=== PATIENT | female | born 1990 | race Caucasian/White ===

== ENCOUNTER 2017-12-30 21:09 | Emergency (ER) | payer OTHER ==
[2017-12-30 21:29] VITALS: RESP 18; TEMP 98.5
--- NOTE | 2017-12-30 22:06 | XR ---
EXAMINATION TYPE: XR Hip LT and AP Pelvis DATE OF EXAM: 12/30/2017 COMPARISON: NONE HISTORY: Left hip pain TECHNIQUE: A single AP view of the pelvis is obtained. Two views of the left hip are obtained. FINDINGS: Pelvic ring is intact. Proximal left femur and hip joint appear intact. Hip joint spaces we ll-maintained. There is no sign of hip dysplasia. Sacroiliac joints appear normal. IMPRESSION: Negative pelvis and left hip exam.
--- NOTE | 2017-12-30 22:13 | ED ---
Lower Extremity Injury HPI - General Chief Complaint: Extremity Injury, Lower Stated Complaint: fall/hip pain Time Seen by Provider: 12/30/17 21:32 Source: patient, RN notes reviewed Mode of arrival: ambulatory Limitations: no limitations - History of Present Illness Initial Comments: This is a 27-year-old female who presents to the emergency department with chief complaint of left hip pain. Patient states her left hip has been hurting for the past 2 weeks. She states that yesterday she sustained a fall and landed directly on her left hip. She states the pain is now worse. She states she has been walking on it normally. She states she has been applying ice. Denies any other injuries or trauma. Denies head, neck or back pain. Denies recent fevers or chills, chest pain or shortness of breath, abdominal pain, nausea or vomiting. - Related Data Home Medications Medication Instructions Recorded Confirmed Albuterol Inhaler [Ventolin Hfa 1 - 2 puff INHALATION RT-Q6H PRN 12/30/17 Inhaler] Allergies Allergy/AdvReac Type Severity Reaction Status Date / Time No Known Allergies Allergy Verified 12/30/17 21:29 Review of Systems ROS Statement: Those systems with pertinent positive or pertinent negative responses have been documented in the HPI. ROS Other: All systems not noted in ROS Statement are negative. Past Medical History Past Medical History: Asthma History of Any Multi-Drug Resistant Organisms: None Reported Past Surgical History: No Surgical Hx Reported Past Psychological History: No Psychological Hx Reported Smoking Status: Current every day smoker Past Alcohol Use History: Occasional Past Drug Use History: Marijuana General Exam - General Exam Comments Initial Comments: General: Awake and alert, well-developed; in no apparent distress. HEENT: Head atraumatic, normocephalic. Pupils are equal, round and reactive to light. Extraocular movements intact. Oropharynx moist without erythema or exudate. Neck: Supple. Normal ROM. Cardiovascular: Regular rate and rhythm. No murmurs, rubs or gallops. Chest symmetrical. Respiratory: Lungs clear to auscultation bilaterally. No wheezes, rales or rhonchi. Normal respiratory effort with no use of accessory muscles. Musculoskeletal: Normal ROM left hip. There is tenderness over the left greater trochanter. Sensation is intact. Pedal pulses are 2+ equal and palpable bilaterally. Skin: [place], warm and dry without rashes or lesions. Neurological: Alert and oriented x3. CN II-XII grossly intact. Speech is fluent and answers are appropriate. No focal neuro deficits. Psychiatric: Normal mood and affect. No overt signs of depression or anxiety noted. Limitations: no limitations Course Vital Signs 12/30/17 21:27 Temperature 98.5 F Pulse Rate 111 H Respiratory 18 Rate Blood Pressure 120/77 O2 Sat by Pulse 98 Oximetry Medical Decision Making - Medical Decision Making This is a 27-year-old female who presents to the emergency department with chief complaint of left hip pain. Patient reports falling onto the left hip yesterday. Normal range of motion and neurovascularly intact. Patient is ambulating. X-ray of the left hip and AP pelvis was obtained which revealed no acute abnormalities. Patient likely suffering from a strain and/or contusion. Recommended rest, ice and Tylenol or ibuprofen as needed for pain. Patient is in agreement with plan and voices understanding. Vitals are stable and she is in no acute distress. She will be discharged home at this time. All questions were answered. - Radiology Data Radiology results: report reviewed X-ray left hip and AP pelvis impression: Negative pelvis and left hip exam. Disposition Clinical Impression: Contusion of left hip Disposition: HOME SELF-CARE Condition: Good Instructions: Hip Contusion (ED) Additional Instructions: Please follow up with primary care provider within 1-2 days. Return to emergency department if symptoms should worsen or any concerns arise. Is patient prescribed a controlled substance at d/c from ED?: No Referrals: Terrance Silverman MD [Primary Care Provider] - 1-2 days Time of Disposition: 22:11
[2017-12-30 22:20] VITALS: BP 121/76; PULSE 89
== END 2017-12-30 22:15 | disposition home or self-care (01) ==
LOC: EC 21:09
DX: S70.02XA Contusion of left hip, initial encounter (principal); J45.909 Unspecified asthma, uncomplicated; F17.200 Nicotine dependence, unspecified, uncomplicated; W01.0XXA Fall on same level from slipping, tripping and stumbling without subsequent striking against object, initial encounter
CPT/HCPCS: 73502; 99283

== ENCOUNTER → 2020-02-09 | Outpatient (CLI) | payer OTHER ==
--- NOTE | 2020-02-09 13:35 | US ---
EXAMINATION TYPE: Ultrasound OB <= 14 week fetus DATE OF EXAM: 02/09/2020 1:11 PM COMPARISON: NONE CLINICAL HISTORY: 29-year-old female Z36 Confirm Dates. EXAM PERFORMED: Transabdominal (TA) FINDINGS: EXAM MEASUREMENTS: GESTATIONAL AGE / DATING Physician Established: Not yet established Dates by LMP: LMP unknown Dates by First Scan: No previous this is first scan Dates by Current Scan for: (9 weeks/4 days) EDC: 09/09/2020 MATERNAL ANATOMY Uterus: 14.0 x 5.7 x 8.5 cm Right Ovary: 2.6 x 2.0 x 1.4 cm Left Ovary: 2.5 x 2.2 x 0.8 cm Post CDS / Adnexa: wnl Presence of free fluid: No Presence of corpus luteal cyst: No Presence of subchorionic bleed: Yes, measuring 1.5 x 1.1 x 1.1 cm GESTATION / SURVEY CRL: 2.7 cm (9 weeks/4 days) Yolk Sac (normal less than 6mm): 4 mm Heart Rate: 163 bpm Rhythm: Normal IUP: Viable IUP Date of LMP: LMP unknown Beta HcG (if available): Not available at this time [employer] Maintainer notes: Viable IUP with an MYA of 09/09/2020 by this exam. Subchorionic bleed measuring 1.5 x 1.1 x 1.1 cm IMPRESSION: 1. Single live intrauterine with gestational age of 9 weeks 4 days by crown-rump length. 2. Small perigestational bleed along the right lateral aspect measuring 1.5 cm. 3. Complete survey recommended at 18-20 weeks.
== END | disposition home or self-care (01) ==
LOC: RADUSWWP 12:57
PROVIDERS: ATTEND Obstetrics & Gynecology
DX: Z36.87 Encounter for antenatal screening for uncertain dates (principal); Z3A.09 9 weeks gestation of pregnancy
CPT/HCPCS: 76801

== ENCOUNTER 2020-09-03 06:04 | Inpatient (IN) | payer OTHER ==
[2020-09-03] MEDS ORDERED: AMPICILLIN 2,000 MG in SODIUM CHLORIDE 0.9% 100 ML IVPB STA (06:32)
[2020-09-03] MEDS ORDERED: OXYTOCIN 10 UNIT/ML 1 ML VIAL IM PRN (06:32)
[2020-09-03] MEDS ORDERED: METHYLERGONOVINE 0.2 MG/ML 1 ML AMP IM PRN (06:32)
[2020-09-03] MEDS ORDERED: CARBOPROST TROMETHAMINE 250 MCG/ML 1 ML AMP IM PRN (06:32)
[2020-09-03] MEDS ORDERED: TERBUTALINE 1 MG/ML VIAL SQ PRN (06:32)
[2020-09-03] MEDS ORDERED: LIDOCAINE 0.5% (PF) 5 MG/ML (50 ML SDV) SQ PRN (06:32)
[2020-09-03] MEDS ORDERED: OXYTOCIN 30 UNITS/500 ML NS 30 UNIT in SALINE 1 500ML.BAG IV SCH ×2 (06:45→23:45)
[2020-09-03] MEDS: LACTATED RINGERS 1,000 ML IV SCH ×4 (06:56→17:42)
[2020-09-03 07:02] LABS: Basophils # (A) 0.1 k/uL (0-0.2); Basophils % (A) 1 %; Eosinophils # (A) 0.2 k/uL (0-0.7); Eosinophils % (A) 2 %; HCT 36.2 % (34.0-46.0); Lymphocytes # (A) 1.9 k/uL (1.0-4.8); Lymphocytes % (A) 23 %; MCH 30.5 pg (25.0-35.0); MCHC 33.3 g/dL (31.0-37.0); MCV 91.5 fL (80.0-100.0); Monocytes # (A) 0.4 k/uL (0-1.0); Monocytes % (A) 5 %; Neutrophils # (A) 5.6 k/uL (1.3-7.7); Neutrophils % (A) 68 %; Platelet Count 211 k/uL (150-450); RBC 3.95 m/uL (3.80-5.40); RDW 13.7 % (11.5-15.5); WBC 8.2 k/uL (3.8-10.6)
--- NOTE | 2020-09-03 07:51 | P.HPOB ---
History of Present Illness H&P Date: 09/03/20 Chief Complaint: induction of labor 30 year old presents at 39 weeks 1 day for induction of labor. Her cervix is 1/70/-2 and she is not janny. heart tones 135 with moderate variability and reactive. Review of Systems All systems: negative Constitutional: Denies chills, Denies fever Eyes: denies blurred vision, denies pain Ears, nose, mouth and throat: Denies headache, Denies sore throat Cardiovascular: Denies chest pain, Denies shortness of breath Respiratory: Denies cough Gastrointestinal: Denies abdominal pain, Denies diarrhea, Denies nausea, Denies vomiting Genitourinary: Denies dysuria, Denies hematuria Musculoskeletal: Denies myalgias Integumentary: Denies pruritus, Denies rash Neurological: Denies numbness, Denies weakness Psychiatric: Denies anxiety, Denies depression Endocrine: Denies fatigue, Denies weight change Past Medical History Past Medical History: Asthma Additional Past Medical History / Comment(s): OB history: first was a vaginal delivery. Second was a termination after she got with an IUD in place. This is her third and she has had care with [facility]. A+, abs neg, Rub Imm, RPR NR, HIV Nr, Hep B neg. GBS Positive. History of Any Multi-Drug Resistant Organisms: None Reported Past Surgical History: No Surgical Hx Reported Past Anesthesia/Blood Transfusion Reactions: No Reported Reaction Past Psychological History: No Psychological Hx Reported Smoking Status: Never smoker Past Alcohol Use History: Occasional Past Drug Use History: Marijuana Medications and Allergies Home Medications Medication Instructions Recorded Confirmed Type Pnv No.95/Ferrous Fum/Folic AC 1 tab PO DAILY 09/03/20 09/03/20 History [ Multivitamin Tablet] Allergies Allergy/AdvReac Type Severity Reaction Status Date / Time No Known Allergies Allergy Verified 09/03/20 06:30 Exam Osteopathic Statement: *. No significant issues noted on an osteopathic structural exam other than those noted in the History and Physical/Consult. Vital Signs Temp Pulse Resp BP 09/03/20 06:25 97.6 F 112 H 16 133/75 Intake and Output 09/02/20 09/03/20 09/03/20 22:59 06:59 14:59 Other: Weight 111.13 kg Heart: Regular rate and rhythm Lungs: Clear to auscultation bilaterally Abdomen: Soft, nontender Extremities: Negative Homans sign Results Result Diagrams: 09/03/20 06:30 Assessment and Plan (1) Elective induction of labor planned Current Visit: Yes Status: Acute Code(s): [id number] - SNOMED Code(s): 599158647 Plan: 1. Induction of labor with amniotomy and Pitocin 2. Ampicillin for GBS prophylaxis 3. Anticipate normal vaginal delivery
[2020-09-03] MEDS: AMPICILLIN 1,000 MG in SODIUM CHLORIDE 0.9% 50 ML IVPB SCH ×4 (10:58→23:00)
[2020-09-03] MEDS ORDERED: BUTORPHANOL 1 MG/ML 1 ML VIAL IV PRN (14:56)
[2020-09-03] MEDS ORDERED: ROPIVACAINE 5MG/ML 20ML VIAL ONE (16:08)
[2020-09-03] MEDS ORDERED: SODIUM CHLORIDE 0.9% 100 ML BAG ONE (16:08)
[2020-09-03] MEDS ORDERED: fentaNYL (PF) 50 MCG/ML 5 ML AMP ONE (16:08)
[2020-09-03] MEDS ORDERED: ACETAMINOPHEN TAB 325 MG TAB PO PRN (23:57)
[2020-09-03] MEDS ORDERED: diphenhydrAMINE 25 MG CAP PO PRN (23:57)
[2020-09-03] MEDS ORDERED: diphenhydrAMINE 50 MG/ML 1 ML VIAL IVP PRN ×2 (23:57)
[2020-09-03] MEDS ORDERED: SIMETHICONE 80 MG CHEWABLE PO PRN (23:57)
[2020-09-03] MEDS ORDERED: HYDROCORTISONE 2.5% RECTAL CREAM 30 GM TUBE RECTAL PRN (23:57)
[2020-09-03] MEDS ORDERED: ZOLPIDEM 5 MG TAB PO PRN (23:57)
[2020-09-03] MEDS ORDERED: LANOLIN CREAM 5 GM TUBE TOPICAL PRN (23:57)
[2020-09-03] MEDS ORDERED: diphenhydrAMINE 50 MG CAP PO PRN (23:57)
[2020-09-03] MEDS ORDERED: BENZOCAINE/MENTHOL SPRAY 1 GM/SPRAY AEROSOL TOPICAL PRN (23:57)
[2020-09-04] MEDS: IBUPROFEN 600 MG TAB PO PRN ×2 (00:36→18:22)
[2020-09-04 07:14] LABS: Basophils % (A) 0 %; Eosinophils # (A) 0.1 k/uL (0-0.7); Eosinophils % (A) 1 %; HCT 35.7 % (34.0-46.0); HGB 11.8 gm/dL (11.4-16.0); Lymphocytes # (A) 1.5 k/uL (1.0-4.8); Lymphocytes % (A) 11 %; MCHC 33.1 g/dL (31.0-37.0); MCV 93.8 fL (80.0-100.0); Mean Platelet Volume 9.6; Monocytes # (A) 0.6 k/uL (0-1.0); Monocytes % (A) 5 %; Neutrophils # (A) 11.5 k/uL (1.3-7.7); Neutrophils % (A) 83 %; Platelet Count 200 k/uL (150-450); RBC 3.81 m/uL (3.80-5.40); RDW 13.7 % (11.5-15.5); WBC 13.9 k/uL (3.8-10.6)
[2020-09-04] MEDS: SENNOSIDES-DOCUSATE SODIUM 1 EACH TAB PO SCH ×2 (08:32→19:42)
--- NOTE | 2020-09-04 08:50 | P.PROBDLV ---
Vaginal Delivery Note - . Vaginal Delivery Note: 30 year old presents at 39 weeks 1 day for induction of labor. Her cervix is 1/70/-2 and she is not janny. heart tones 135 with moderate variability and reactive. Pitocin was started. Amniotomy performed at 7:37 AM and clear fluid noted. She slowly became uncomfortable throughout the day and received 1 dose of Stadol and then an epidural around 4 PM. She was 4-5 cm dilated for a few hours, with position changes she remained good cervical change to complete at 2333. She pushed and delivered a viable female infant over intact perineum under epidural anesthesia at 2346. Head delivered OA, nuchal cord 1 easily reduced, anterior shoulder delivered gentle downward guidance followed by posterior shoulder and rest of body. Nose and mouth bulb suctioned, cord clamped and cut, placed on mother's abdomen. Apgars 8, 9, weight 6 lbs. 14 oz. Placenta delivered spontaneously, intact with three-vessel cord at 2349. Vagina, cervix, perineum inspected. First-degree midline laceration was repaired with 3-0 Vicryl. Quantitative blood loss 75 mL during delivery. Mother and baby in stable condition.
--- NOTE | 2020-09-04 08:53 | P.DS ---
Providers Date of admission: 09/03/20 06:04 Expected date of discharge: 09/04/20 Attending physician: Bernice Pulido Primary care physician: Stated None - Discharge Diagnosis(es) (1) Elective induction of labor planned Current Visit: Yes Status: Resolved (2) Normal vaginal delivery Current Visit: Yes Status: Acute Hospital Course: Patient presented for induction of labor. She underwent normal vaginal delivery. course was uncomplicated. She denies nausea, vomiting, chest pain, shortness of breath or any calf pain. Her lochia is decreasing. She'll be discharged home day #1 in stable condition to follow-up with me in 6 weeks. Plan - Discharge Summary Discharge Rx Participant: Yes New Discharge Prescriptions: New Ibuprofen [Motrin] 600 mg PO Q6H PRN #30 tab PRN Reason: Pain No Action Pnv No.95/Ferrous Fum/Folic AC [ Multivitamin Tablet] 1 tab PO DAILY Discharge Medication List Pnv No.95/Ferrous Fum/Folic AC [ Multivitamin Tablet] 1 tab PO DAILY 09/03/20 [History] Ibuprofen [Motrin] 600 mg PO Q6H PRN #30 tab 09/04/20 [Rx] Follow up Appointment(s)/Referral(s): Bernice Pulido DO [Doctor of Osteopathic Medicine] - 10/15/20 10:45 am Discharge Disposition: HOME SELF-CARE
[2020-09-04 19:57] VITALS: RESP 16
[2020-09-05] MEDS: IBUPROFEN 600 MG TAB PO PRN ×2 (02:45→08:41)
[2020-09-05 08:24] VITALS: BP 124/82; PULSE 70; TEMP 97.9
[2020-09-05] MEDS: SENNOSIDES-DOCUSATE SODIUM 1 EACH TAB PO SCH (08:40)
== END 2020-09-05 10:03 | disposition home or self-care (01) | DRG 807 ==
LOC: 4FBP 06:04
PROVIDERS: ADMIT Obstetrics & Gynecology; ATTEND Obstetrics & Gynecology
PROC: 10E0XZZ Delivery of Products of Conception, External Approach (ICD-10-PCS; principal; 2020-09-03)
PROC: 0HQ9XZZ Repair Perineum Skin, External Approach (ICD-10-PCS; 2020-09-03)
PROC: 3E033VJ Introduction of Other Hormone into Peripheral Vein, Percutaneous Approach (ICD-10-PCS; 2020-09-03)
PROC: 10907ZC Drainage of Amniotic Fluid, Therapeutic from Products of Conception, Via Natural or Artificial Opening (ICD-10-PCS; 2020-09-03)
DX: O99.824 Streptococcus B carrier state complicating childbirth (principal); Z37.0 Single live birth; O70.0 First degree perineal laceration during delivery; O69.81X0 Labor and delivery complicated by cord around neck, without compression, not applicable or unspecified; J45.909 Unspecified asthma, uncomplicated; O99.52 Diseases of the respiratory system complicating childbirth; Z3A.39 39 weeks gestation of pregnancy
CPT/HCPCS: 85025; 86850; 86900; 86901

== ENCOUNTER 2020-11-12 06:17 | Day surgery (SDC) | payer OTHER ==
[2020-11-08 14:57] VITALS: BMI 38.2
[~2020-11-12 06:17] MED LIST: DEXAMETHASONE SOD PHOSPHATE 4 MG/ML 1 ML VIAL IV ONE; LACTATED RINGERS 1,000 ML IV SCH; MIDAZOLAM 2 MG/2 ML VIAL IV PRN; ONDANSETRON 4 MG/2 ML VIAL IVP ONE; Pre Op ABX Message 1 EACH MISC MISCELLANE ONE; SCOPOLAMINE 1.5MG/72HR PATCH TRANSDERM ONE
[2020-11-12] MEDS ORDERED: HYDROmorphone 0.5 MG/0.5 ML SYRINGE IVP PRN (07:00)
--- NOTE | 2020-11-12 07:08 | P.HPOB ---
History of Present Illness H&P Date: 11/12/20 Chief Complaint: family planning 30-year-old presents for laparoscopic tubal ligation. Review of Systems All systems: negative Constitutional: Denies chills, Denies fever Eyes: denies blurred vision, denies pain Ears, nose, mouth and throat: Denies headache, Denies sore throat Cardiovascular: Denies chest pain, Denies shortness of breath Respiratory: Denies cough Gastrointestinal: Denies abdominal pain, Denies diarrhea, Denies nausea, Denies vomiting Genitourinary: Denies dysuria, Denies hematuria Musculoskeletal: Denies myalgias Integumentary: Denies pruritus, Denies rash Neurological: Denies numbness, Denies weakness Psychiatric: Denies anxiety, Denies depression Endocrine: Denies fatigue, Denies weight change Past Medical History Past Medical History: Asthma History of Any Multi-Drug Resistant Organisms: None Reported Past Surgical History: No Surgical Hx Reported Past Anesthesia/Blood Transfusion Reactions: No Reported Reaction Past Psychological History: No Psychological Hx Reported Smoking Status: Former smoker, Vaper Past Alcohol Use History: Occasional Additional Past Alcohol Use History / Comment(s): Smoked for 12 yrs, quit 8 months ago. Past Drug Use History: Marijuana Additional Drug Use History / Comment(s): Marijuana use biweekly. Aware no use 24 hrs prior to procedure. - Past Family History Mother Family Medical History: No Reported History Medications and Allergies Home Medications Medication Instructions Recorded Confirmed Type No Known Home Medications 11/08/20 11/08/20 History Allergies Allergy/AdvReac Type Severity Reaction Status Date / Time No Known Allergies Allergy Verified 11/08/20 14:46 Exam Osteopathic Statement: *. No significant issues noted on an osteopathic structural exam other than those noted in the History and Physical/Consult. Intake and Output 11/11/20 11/12/20 11/12/20 22:59 06:59 14:59 Other: Weight 108.2 kg Heart: Regular rate and rhythm Lungs: Clear to auscultation bilaterally Abdomen: Soft, nontender Extremities: Negative Homans sign Assessment and Plan (1) Family planning Current Visit: Yes Status: Acute Code(s): Z30.09 - ENCOUNTER FOR OTH GENERAL CNSL AND ADVICE ON CONTRACEPTION SNOMED Code(s): 988192839 Plan: 1. Laparoscopic tubal ligation
[2020-11-12] MEDS ORDERED: PROPOFOL 10 MG/ML 20 ML VIAL IV ONE (07:29)
[2020-11-12] MEDS ORDERED: ROCURONIUM 10 MG/ML (5 ML VIAL) IV ONE (07:29)
[2020-11-12] MEDS ORDERED: fentaNYL (PF) 50 MCG/ML 2 ML AMP ONE (07:29)
[2020-11-12] MEDS ORDERED: KETOROLAC 15 MG/ML 1 ML VIAL ONE (07:29)
[2020-11-12] MEDS ORDERED: LIDOCAINE 1% INJ 10MG/ML (20 ML MDV) ONE (07:29)
[2020-11-12] MEDS ORDERED: MIDAZOLAM 2 MG/2 ML VIAL ONE (07:29)
[2020-11-12] MEDS ORDERED: BUPIVACAINE (PF) 0.25% 30 ML VIAL SQ ONE (07:52)
[2020-11-12 08:21] VITALS: RESP 16; TEMP 97
--- NOTE | 2020-11-12 08:31 | P.OP ---
Date of Procedure: 11/12/20 Preoperative Diagnosis: 1. Family planning Postoperative Diagnosis: 1. Family planning Procedure(s) Performed: Laparoscopic tubal ligation Anesthesia: CHATA Surgeon: Bernice Pulido Estimated Blood Loss (ml): 5 IV fluids (ml): 400 Urine output (ml): 10 Pathology: none sent Condition: stable Disposition: floor Operative Findings: Normal uterus, tubes, ovaries. Uterus sounded 10 cm. Description of Procedure: Patient was taken to the operating room where general anesthesia was obtained without difficulty. She was prepped and draped in normal sterile fashion in the dorsal lithotomy position, legs placed in the Ken stirrups. Bladder drained of all urine. [place] speculum placed in the vagina and the anterior lip the cervix was grasped with single-tooth tenaculum. The uterus is sounded to 10 cm and the kroner manipulator was placed. Attention was then turned to the abdomen and gloves were changed. A 10 mm infraumbilical incision was made the scalpel and 10 mm optical trocar was placed under direct visualization. A 5 mm suprapubic Incision was made and a 5 mm optical trocar was placed under direct visualization. Survey of the pelvis revealed normal uterus tubes and ovaries. The left fallopian tube was grasped with a Kleppinger and fulgurated 2-3 cm on this side in the ampullar portion. The right fallopian tube was grasped with a Kleppinger and fulgurated 2-3 cm in the ampullar portion. All instruments were then removed from the abdomen and vagina. The 10 mm infraumbilical incision was closed with 0 Vicryl and the fascial layer and then 4-0 Vicryl in a subcuticular fashion. The 5 mm incision was closed with 4-0 Vicryl in a subcuticular fashion. Patient tolerated procedure well, sponge and instrument counts correct 2 and she was taken to recovery room in stable condition.
[2020-11-12 09:07] VITALS: BP 109/73; PULSE 48
== END 2020-11-12 09:28 | disposition home or self-care (01) ==
LOC: OR 06:17
PROVIDERS: ATTEND Obstetrics & Gynecology
DX: Z30.2 Encounter for sterilization (principal); J45.909 Unspecified asthma, uncomplicated; U07.0 Vaping-related disorder
CPT/HCPCS: 58670; 81025; J2250; J1100; J2405; J2001; J3010; J1885; J2704